=== PATIENT | female | born 1985 | race Caucasian/White ===

== ENCOUNTER 2024-07-21 10:09 | Emergency (ER) | payer SELFPAY ==
[2024-07-21 10:15] VITALS: BP 152/97; PULSE 76; RESP 18; TEMP 36.9; O2SAT 100
--- NOTE | 2024-07-21 10:24 | ED.URI ---
HPI - URI/Sore Throat General Chief Complaint: Upper Respiratory Infection Stated Complaint: Chest Congestion/Cough Time Seen by Provider: 07/21/24 10:24 Source: patient Mode of arrival: ambulatory Limitations: no limitations History of Present Illness HPI Narrative: 39 yo F presents with c/o cough, chest and nassal congestion, fatigue, bodyaches for 2 days. Tested positive for covid at home. also has covid. Pt reports alot of coughing and sneezing. Chest prasad, CP with sneezing. All systems reviewed and negative except as noted above. Related Data Home Medications Medication Instructions Recorded Confirmed amlodipine 10 mg tablet 10 mg DIRECTED 07/21/24 07/21/24 bupropion HCl 150 mg 24 hr tablet, 150 mg PO DIRECTED 07/21/24 07/21/24 extended release lisinopril 20 mg tablet 20 mg DIRECTED 07/21/24 07/21/24 metoprolol succinate 50 mg 50 mg PO DIRECTED 07/21/24 07/21/24 tablet,extended release 24 hr olanzapine 15 mg tablet 15 mg DIRECTED 07/21/24 07/21/24 Allergies Allergy/AdvReac Type Severity Reaction Status Date / Time Penicillins Allergy Severe Swelling Verified 07/21/24 10:28 of Lip/Tongue/Throat Review of Systems Review of Systems: all systems reviewed and negative except as noted below Constitutional: Constitutional: Reports headache(s), Reports lethargy and Reports malaise ENT: Reports nasal congestion, Reports nasal discharge and Reports sore throat Respiratory: Respiratory: Reports chest congestion and Reports cough PMFSH Comments medical, surgical, family and social hx 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[employer] Exam Const: General: cooperative, healthy appearing, comfortable, no acute distress, alert, awake and Physically active HENMT: Head: normal to inspection Ears: hearing grossly normal bilaterally, external ears normal and TM's normal bilaterally Face/Nose/Sinus: Normal external nose present and Nasal discharge present clear Throat: posterior oropharynx abnormal edema and erythema and postnasal drainage Eyes: General: appearance normal, both eyes and all related structures Neck: Neck: normal visual inspection, full ROM and no lymphadenopathy Resp: Effort & Inspection: normal respiratory effort and able to speak in complete sentences Auscultation: clear to auscultation bilaterally Cardio: Rate: regular rate Rhythm: regular rhythm Skin: General skin exam: normal color and no rashes or lesions noted Neuro: General: oriented to person, oriented to place, oriented to time, patient oriented x3 and gait normal Extrem: General: normal to inspection and full ROM Psych: Appearance: grossly normal and well kempt Course Course Level of Care: Express Care Visit Vital Signs Vital signs: Vital Signs Temperature 36.9 C 07/21/24 10:15 Pulse Rate 76 07/21/24 10:15 Respiratory Rate 18 07/21/24 10:15 Blood Pressure 152/97 H 07/21/24 10:15 Pulse Oximetry 100 07/21/24 10:15 Oxygen Delivery Room Air 07/21/24 10:15 Temperature 36.9 C 07/21/24 10:15 Pulse Rate 76 07/21/24 10:15 Respiratory Rate 18 07/21/24 10:15 Blood Pressure 152/97 H 07/21/24 10:15 Pulse Oximetry 100 07/21/24 10:15 Oxygen Delivery Room Air 07/21/24 10:15 reviewed MDM - URI/Sore Throat MDM Narrative Medical decision making narrative: positive home covid test. lungs clear to auscultation. no resp distress. recommend OTC meds to treat symptoms. Discharge Plan Discharge Clinical Impression: COVID-19, Chest pain, musculoskeletal Patient Disposition: Home, Self-Care Condition: Stable Instructions: COVID-19 (Coronavirus Disease 2019) (ED) Additional Instructions: COVID is a virus and symptoms may last 10-14 days. Continue taking [id number] medication to treat her symptoms such as DayQuil NyQuil cold and flu. Take ibuprofen every 6-8 hours as needed for pain. Drink at least 64 oz of water a day. Follow-up with your primary care physician
== END 2024-07-21 10:37 | disposition home or self-care (01) ==
PROVIDERS: Emergency Provider Nurse Practitioner Family; PCP Physician Assistant
DX: U07.1 COVID-19 (principal); R07.89 Other chest pain
CPT/HCPCS: 99202; G0463